=== PATIENT | male | born 1970 | race Two or more races ===

== ENCOUNTER 2024-01-19 21:17 | Emergency (ER) | payer OTHER, MEDICAID, SELFPAY ==
[2024-01-19 21:18] VITALS: PULSE 72; RESP 16; O2SAT 97; BMI 35.2
[2024-01-19 21:20] VITALS: PULSE 56
--- NOTE | 2024-01-19 21:20 | PC.NURSE ---
PATIENT WAS BIBBA FROM HOME FOR AMS POSSIBLE ALCOHOL INTOXICATION PER EMS. STATED, HE HAD BEEN DRINKING ALL DAY A BOTTLE OF LIQUOR AND BECAME ALERTED TENS MINS BEFORE CALLING THE AMBULANCE. PATIENT ARRIVED ON A OXY MASK ON LITERS MAINTAINING AIR WAY, PLACED ON FLIGHT SURVEYOR, DR. ATKINSON AT BEDSIDE ASSESSING PATIENT.
[2024-01-19 21:22] VITALS: BP 103/62; PULSE 60; RESP 20; TEMP 36.2; O2SAT 98
[2024-01-19] MEDS: ONDANSETRON INJ 2 MG/ML INJ 2 ML 4 MG IV (21:24)
--- NOTE | 2024-01-19 21:29 | XR_ITS ---
Examination: AP chest single view Technique: AP portable semiupright chest single view Exam date and time: January 19, 2024 at 2143 hrs. Indications: Chest pain today Findings: Mild prominence left ventricle Mild vascular congestion No lobar pneumonia or pulmonary edema Mild to moderate elevation right hemidiaphragm Moderate osteopenia Impression: Mild vascular congestion
--- NOTE | 2024-01-19 21:30 | XR_ITS ---
Examination: CT brain head without contrast. 2-D sagittal coronal reconstructions Date and time of exam:January 19, 2024 2152 hrs. Indications: Onset altered mental status today CTDI: vol (mGy):50.80 DLP: (mGycm):1044 Technique: Multiple CT axial sections of the brain have been obtained, 5 mm slice thickness. Contrast has not been administered. 2-D sagittal, coronal reconstructions have been obtained Low dose protocols were performed. One or more of the following dose reduction techniques were used; automated exposure control, adjustment of the mA and/or KV according to patient size, use of iterative reconstruction technique. Findings: No significant ventricular enlargement. Intra-axial or extra-axial hemorrhage density is not seen. No mass effect or midline shift Basal cisterns are not remarkable. Fourth ventricle is midline. Cranial vault intact. Large retention cyst left maxillary antrum Impression: Negative for acute hemorrhage, mass effect or midline shift
[2024-01-19 21:54] LABS: Basophils # (Auto) 0.1 Thou/mm3 (0.0-0.2); Basophils % (Auto) 1 % (0-2.5); Eosinophils # (Auto) 0.2 Thou/mm3 (0.0-0.5); Eosinophils % (Auto) 2 % (0-10); Hemoglobin 15.6 g/dL (13.5-16.0); Immature Granulocytes % (Auto) 0 % (0-0); Immature Granulocytes Auto 0.03 Thou/mm3 (0.00-0.00); Lymphocytes # (Auto) 3.9 Thou/mm3 (1.0-4.8); Lymphocytes % (Auto) 37 % (10-50); Mean Corpuscular HGB Conc 34.7 g/dl (31.0-37.0); Mean Corpuscular Hemoglobin 29.3 pg (25.0-35.0); Mean Corpuscular Volume 85 fL (80-100); Monocytes # (Auto) 0.9 Thou/mm3 (0.0-0.8); Monocytes % (Auto) 9 % (0-12); Neutrophils # (Auto) 5.3 Thou/mm3 (1.8-7.7); Neutrophils % (Auto) 51 % (37-80); Nucleated Red Blood Cell % 0 /100 WBC (0); Platelet Count 215 Thou/mm3 (140-440); RDW Standard Deviation 37.6 fL (35.1-43.9); Red Blood Count 5.32 Miln/mm3 (4.50-5.90); White Blood Count 10.3 Thou/mm3 (3.8-10.6)
--- NOTE | 2024-01-19 21:59 | PD.EDALCOH ---
ED Alcohol RME/HPI General Chief Complaint: Alcohol Stated Complaint: ALTERED Time Seen by Provider: 01/19/24 21:29 Arrival date/time: 01/19/24 21:17 RME / HPI RME / HPI narrative: Dr. Mattson?s Main ED Evaluation: 53yo male DUNG from home presents to the ED for a chief complaint of AMS. Per EMS, called 911 due to finding the patient passed out on the floor. She endorsed to EMS that the patient has been drinking alcohol all day today, reporting he drank a big bottle of tequila. Full ROS is unobtainable due to the patient's AMS. Related Data Previous Rx's ?Medication ?Instructions ?Recorded ibuprofen 600 mg tablet 600 mg PO Q6H PRN pain #30 tabs 08/31/18 Allergies Allergy/AdvReac Type Severity Reaction Status Date / Time No Known Allergies Allergy Verified 08/31/18 17:11 Review of Systems Review of Systems ROS Unobtainable: unobtainable due to mental status Past Medical History Past Medical History CARDIAC: Negative Congestive Heart Failure RESPIRATORY: Negative Chronic Obstructive Pulmonary Disease (COPD) GENITOURINARY: Negative Renal Disease ENDOCRINE: Negative Diabetes Mellitus Type 1 or Diabetes Mellitus Type 2 Social History SMOKING STATUS: Never smoker ED Exam Narrative Physical exam: GENERAL APPEARANCE: appears intoxicated, smells of alcohol, has drool on the front of his chest, no acute distress HEENT: Normocephalic, atraumatic; pupils equal, round, reactive to light; EOMI; mucous membranes pink, moist; oropharynx clear NECK: Supple LUNGS: CTABL; no wheezes, no rales, no rhonchi HEART: Regular rate, regular rhythm; normal S1, S2; no murmurs ABDOMEN: non distended; normal BS; soft, no tenderness, no guarding, no rebound; no masses, no organomegaly, no hernia BACK: no CVA tenderness EXTREMITIES: atraumatic; no edema NEUROLOGIC: appears intoxicated; responds to painful stimuli PSYCHIATRIC: appropriate mood and affect SKIN: warm, diaphoretic, normal color; no rashes Course Course Course Narrative: CXR is ordered to r/o aspiration pneumonia. OBSERVATION NOTE: The patient was placed in ED observation care at 01/19/24 at 2300 hours. The patient was placed in ED observation care because of pending MTF. The patients past medical history, social history, and family history were reviewed. The plan of care will include serial examinations. 0033: On re-evaluation, patient is drowsy, but arousable, and is talking. When asked how much he drank tonight, he states not too much . Will continue to monitor the patient. 0143: Patient is awake, alert, talking, eating, and drinking water. Patient is stable and his at bedside states she feels comfortable taking the patient home. At this time, observation has ended. Quality Measures none Orders Category Date Time Status Ed Tech NOW Care 01/19/24 21:29 Completed EKG (ED ONLY) *Do not use* NOW Care 01/19/24 21:22 Completed Davis [Urinary Catheter] QS Care 01/19/24 21:[address] head/brain wo con Stat Exams 01/19/24 21:30 Completed EKG (ED Only) Stat Exams 01/19/24 21:21 Ordered XR chest 1V portable Stat Exams 01/19/24 21:29 Completed ABG [Arterial Blood Gas] Stat Lab 01/19/24 22:10 Completed Alcohol, Blood Medical Stat Lab 01/19/24 21:35 Completed B-Type Natriuretic Peptide Stat Lab 01/19/24 21:35 Completed CBC Stat Lab 01/19/24 21:35 Completed Comprehensive Metabolic Panel Stat Lab 01/19/24 21:35 Completed Drug Screen,Urine Stat Lab 01/19/24 21:35 Completed Lipase Stat Lab 01/19/24 21:35 Completed Magnesium Stat Lab 01/19/24 21:35 Completed Partial Thromboplastin Time Stat Lab 01/19/24 21:35 Completed Prothrombin Time with INR Stat Lab 01/19/24 21:35 Completed Troponin I Stat Lab 01/19/24 21:35 Completed Ondansetron Inj [Zofran Inj] Med 01/19/24 21:21 Discontinued 4 mg IV X1 ONE Vital Signs Vital signs: Vital Signs Pulse Rate 56 L 01/19/24 21:20 Discharge Plan Plan Patient Disposition: HOME (Self Care) Prescriptions/Referrals Prescriptions/Med Rec: No Action ibuprofen 600 mg tablet 600 mg PO Q6H PRN (Reason: pain) Qty: 30 0RF Referrals: Caleb Vaughn [Primary Care Provider] - In 1 week Problem List Clinical Impression: Alcoholic intoxication Patient/Caregiver Discharge Instructions Education Materials: ED Alcohol Intoxication Print Language: Sami Stand Alone Forms: Leslee Award Info., Patient Portal Info Letter Alcohol MDM Narrative MDM Narrative: Scribe Attestation: 01/19/24 - Lidia Braun am scribing for and in the presence of Dr. Mattson. Patient data External records reviewed:: [facility] previous records (Per chart review, patient has no relevant previous ED visits.) Clinical information provided by:: EMS Social determinants that could affect healthcare access:: alcohol use Patient has the following chronic illnesses:: none How is presenting disease/condition affected by chronic disease/condition?: no chronic disease Evaluation data The following diagnostics were reviewed and interpreted by me:: lab results, radiology exam(s) and EKG tracing(s) Lab and/or radiology exams considered but not ordered:: none Interpretation Summary: CBC is normal, BNP is normal, Glucose is elevated at 244, troponin is normal, Lipase is normal, ABG shows: slightly low pH of 7.31, elevated CO2 of 51, normal HCO3 of 25; BNP is normal, UDS is negative, Blood alcohol is 349.4, according to my interpretation. EKG done at 2125, NSR, rate of 76, poor R wave progression, T-wave inversion in V1, flattening of the ST segment in lead III, no acute ischemia, according to my interpretation. The clinical research monitor revealed normal sinus rhythm as interpreted by me. The clinical research monitor was ordered secondary to the patient's complaint of AMS and to monitor for hypoxia. I have personally reviewed the radiology data and agree with the radiologist's interpretation below: [facility] Report Signed Patient: IRAIDA DE LEON [facility]. Record#: [id number] Birthdate: 1970 Age/Sex: 53 / M Location: [facility] Attending Dr: Ordering Physician: Ruth Mattson MD Date of Service: 01/19/24 Procedure(s): XR chest 1V portable Accession Number(s): [id number] cc: Caleb Guerin; Bob Lancaster MD; Ruth Mattson MD~ Examination: AP chest single view Technique: AP portable semiupright chest single view Exam date and time: January 19, 2024 at 2143 hrs. Indications: Chest pain today Findings: Mild prominence left ventricle Mild vascular congestion No lobar pneumonia or pulmonary edema Mild to moderate elevation right hemidiaphragm Moderate osteopenia Impression: Mild vascular congestion Dictated By: Bob Lancaster MD Signed By: <Electronically signed by Bob Lancaster MD in OV> 01/19/242150 [facility] Signed Patient: IRAIDA DE LEON [facility] [place]. Record#: [id number] Birthdate: 1970 Age/Sex: 53 / M Location: [facility] Attending Dr: Ordering Physician: Ruth Mattson MD Date of Service: 01/19/24 Procedure(s): CT head/brain wo con Accession Number(s): [id number] cc: Caleb Guerin; Bob Lancaster MD; Ruth Mattson MD~ Examination: CT brain head without contrast. 2-D sagittal coronal reconstructions Date and time of exam:January 19, 2024 2152 hrs. Indications: Onset altered mental status today CTDI: vol (mGy):50.80 DLP: (mGycm):1044 Technique: Multiple CT axial sections of the brain have been obtained, 5 mm slice thickness. Contrast has not been administered. 2-D sagittal, coronal reconstructions have been obtained Low dose protocols were performed. One or more of the following dose reduction techniques were used; automated exposure control, adjustment of the mA and/or KV according to patient size, use of iterative reconstruction technique. Findings: No significant ventricular enlargement. Intra-axial or extra-axial hemorrhage density is not seen. No mass effect or midline shift Basal cisterns are not remarkable. Fourth ventricle is midline. Cranial vault intact. Large retention cyst left maxillary antrum Impression: Negative for acute hemorrhage, mass effect or midline shift Dictated By: Bob Lancaster MD Signed By: <Electronically signed by Bob Lancaster MD in OV> 01/19/242203 Medications / Prescriptions Medications or Prescriptions considered but not ordered:: none Medication administrations:: Medication Administration History Discontinued Medications Ondansetron HCl (Ondansetron Inj 2 Mg/Ml Inj 2 Ml) 4 mg IV X1 ONE; Protocol Stop: 01/19/24 21:22 Last Admin: 01/19/24 21:24 Dose: 4 mg Documented By: CB see above Consultations Consultation(s) initiated? (list below): No Diagnosis Differential diagnosis alcohol: alcohol intoxication and other (CVA, TIA, metabolic encephalopathy, illicit drug use) Most likely diagnosis given after review of the tests above:: see below Admission Indicated Admission indicated?: not indicated Admission Request Was there a request for admission?: No Disposition Plan Disposition Plan: Discharge Discharge Attestation Discharge Attestation: The patient and all family members were given an opportunity to ask questions and understood the discharge instructions. Discharge instructions specifically effects, indications for sooner follow up or return to the emergency department, and the expected course of current diagnosis. Patient condition: Stable
[2024-01-19 22:03] VITALS: BP 114/71; PULSE 58; RESP 17; O2SAT 98
[2024-01-19 22:08] LABS: Partial Thromboplastin Time 24.3 Seconds (22.0-36.0); Prothrombin Time 10.9 Seconds (9.0-12.2)
[2024-01-19 22:12] LABS: Amphetamine/Methamp Scrn,U Negative (Negative); Barbiturate Screen,Urine Negative (Negative); Benzodiazepines Screen,Urine Negative (Negative); Benzoylecgonine Screen, Ur Negative (Negative); Fentanyl Screen,Urine Negative (Negative); Opiate Screen,Urine Negative (Negative); THC Screen,Urine Negative (Negative)
[2024-01-19 22:14] LABS: Base Excess -2 (-3-3); HCO3 25 mEq/L (20-26); Inspired O2, VO2 Liters 7 L/min; O2 Saturation 100 % (91-98); PCO2 51 mmHg (32.0-48.0); PO2 218 mmHg (83-108); pH, Arterial 7.31 (7.35-7.45)
[2024-01-19 22:15] LABS: Allen Test Performed/OK; Puncture Site Right Radial
[2024-01-19 22:20] LABS: B-Type Natriuretic Peptide < 20 pg/mL (0-100)
[2024-01-19 22:26] LABS: Alanine Aminotransferase 89 U/L (10-49); Albumin, Serum 4.6 gm/dL (3.5-5.0); Albumin/Globulin Ratio 1.6 (1.2-2.2); Alcohol, Blood Medical 349.4 mg/dL (0-10.0); Alkaline Phosphatase 113 U/L (46-116); Anion Gap 11 (7-16); Aspartate Amino Transferase 33 U/L (0-34); BUN/Creatinine Ratio 13 Ratio (12-20); Bilirubin,Total 0.6 mg/dL (0.3-1.2); Blood Urea Nitrogen 10 mg/dL (9-23); Calcium 9.7 mg/dL (8.3-10.6); Calcium (Corrected) 9.7 mg/dL (8.5-10.1); Carbon Dioxide 24.8 mMol/L (20.0-31.0); Chloride 103 mMol/L (98-107); Creatinine (Component) 0.8 mg/dL (0.6-1.3); Estimated Creatinine Clearance 133.3 mL/min (>60); Globulin 2.9 gm/dL (2.3-3.5); Glucose 244 mg/dL (74-106); Lipase 44 U/L (12-53); Magnesium 2.1 mg/dL (1.6-2.6); Osmolality,Calculated 284 (275-295); Potassium 3.9 mMol/L (3.4-5.1); Sodium 139 mMol/L (136-145); Total Protein 7.5 gm/dL (5.7-8.2); Troponin I < 0.002 ng/mL (0.0-0.045); eGFR > 60 See Note
[2024-01-20 01:40] VITALS: BP 110/69; PULSE 91; RESP 18; O2SAT 96
--- NOTE | 2024-01-20 02:10 | PC.NURSE ---
PT AWAKE AND REQUESTING WATER. WATER GIVEN AND WAS ABLE TO DRINK WITHOUT ANY ISSUES. PT ALSO TAKEN TO THE RESTROOM VIA WHEELCHAIR. OKAY TO BE DC'D PER DR ATKINSON. PT'S AT BEDSIDE AND HELPED PT CHANGE INTO DISPOSABLE SCRUBS.
== END 2024-01-20 02:19 | disposition home or self-care (01) ==
PROVIDERS: Emergency Provider Emergency Medicine; PCP Physician Assistant
DX: F10.929 Alcohol use, unspecified with intoxication, unspecified (principal); R09.89 Other specified symptoms and signs involving the circulatory and respiratory systems; R41.82 Altered mental status, unspecified; Y90.8 Blood alcohol level of 240 mg/100 ml or more
CPT/HCPCS: 51702; 36415; 36600; 70450; 71045; 80053; 80307; 80320; 82803; 83690; 83735; 83880; 84484; 85025; 85610; 85730; 93005; 96374; 99284; J2405; G0480